=== PATIENT | female | born 1965 | race American Indian/Alaskan Native ===

== ENCOUNTER 2017-09-04 14:49 | Inpatient (IN) | payer MEDICAID ==
[2017-09-04 16:23] LABS: SQUAMOUS EPITHIAL 13 /hpf (0-5); URINE BACTERIA RARE (<OCC); URINE BILIRUBIN NEGATIVE (NEGATIVE); URINE BLOOD NEGATIVE (NEGATIVE); URINE CLARITY Hazy (Clear); URINE COLOR Yellow (YELLOW); URINE GLUCOSE (UA) NORMAL (Normal); URINE LEUKOCYTE ESTERASE NEG Leu/uL (Negative); URINE PROTEIN 1+ mg/dL (NEGATIVE); URINE UROBILINOGEN NORMAL mg/dL (0.2-1.0)
[2017-09-04 16:30] LABS: ALB/GLOB RATIO 0.9 (1.0-2.1); ALBUMIN 3.8 g/dL (3.5-5.0); ALT/SGPT 45 U/L (9-52); AST/SGOT 37 U/L (14-36); BLOOD UREA NITROGEN 44 mg/dL (7-17); CALCIUM 8.8 mg/dl (8.6-10.4); GFR AFRICAN-AMERICAN 15; GFR NON-AFRICAN AMERICAN 13
[2017-09-04 16:33] LABS: BARBITURATES, UR NEGATIVE (NEGATIVE); BENZODIAZEPINES, UR NEGATIVE (NEGATIVE); OPIATES, UR POSITIVE (NEGATIVE); PHENCYCLIDINE, UR NEGATIVE (NEGATIVE)
--- NOTE | 2017-09-04 16:54 | C.PDOC ---
History Of Present Illness 52 y/o female with history of DM, HTN, HIV and Hep C presents to ED requesting detox from Heroin and Cocaine. Patient states she uses 46 bags of heroin and cocaine daily, reports last used last night. Patient denies fever, chills, cp, sob, headache, nausea or any medical complaints at this time. Time Seen by Provider: 09/04/17 15:31 Chief Complaint (Nursing): Substance Abuse History Per: Patient History/Exam Limitations: no limitations Onset/Duration Of Symptoms: Days Current Symptoms Are (Timing): Still Present Suicide/Self Injury Attempted (Context): None Modifying Factor(s): Cocaine Past Medical History Reviewed: Historical Data, Nursing Documentation, Vital Signs Vital Signs: Last Vital Signs Temp 98.0 F 09/04/17 15:34 Pulse 81 09/04/17 15:34 Resp 18 09/04/17 15:34 BP 150/81 09/04/17 15:34 Pulse Ox 100 09/04/17 17:05 - Medical History PMH: Asthma, HIV, HTN Surgical History: No Surg Hx Family History: States: No Known Family Hx - Social History Hx Alcohol Use: Yes Hx Substance Use: Yes - Immunization History Hx Tetanus Toxoid Vaccination: Yes Hx Influenza Vaccination: Yes Hx Pneumococcal Vaccination: Yes Review Of Systems Constitutional: Negative for: Fever, Chills Cardiovascular: Negative for: Chest Pain Respiratory: Negative for: Shortness of Breath Gastrointestinal: Negative for: Nausea, Vomiting Skin: Negative for: Rash Physical Exam - Physical Exam Appears: Non-toxic, No Acute Distress Skin: Warm, Dry, No Rash Head: Atraumatic, Normacephalic Eye(s): bilateral: Normal Inspection Oral Mucosa: Moist Neck: Normal ROM, Supple Cardiovascular: Rhythm Regular Respiratory: Normal Breath Sounds, No Rales, No Rhonchi, No Wheezing Gastrointestinal/Abdominal: Soft, No Tenderness, No Guarding, No Rebound Extremity: Normal ROM, Capillary Refill (<2 seconds) Neurological/Psych: Oriented x3, Normal Speech, Normal Cognition ED Course And Treatment - Laboratory Results Result Diagrams: 09/04/17 16:52 09/04/17 16:14 O2 Sat by Pulse Oximetry: 100 (RA) Pulse Ox Interpretation: Normal Disposition Counseled Patient/Family Regarding: Studies Performed, Diagnosis - Disposition Disposition: HOSPITALIZED Disposition Time: 17:12 Condition: STABLE Forms: [employer] [employer] (Spanish) - Clinical Impression Clinical Impression: Drug dependence - Scribe Statement The provider has reviewed the documentation as recorded by the Thompsonibe Tiffany Haddad All medical record entries made by the Thompsonibe were at my direction and personally dictated by me. I have reviewed the chart and agree that the record accurately reflects my personal performance of the history, physical exam, medical decision making, and the department course for this patient. I have also personally directed, reviewed, and agree with the discharge instructions and disposition. Decision To Admit - Pt Status Changed To: Hospital Disposition Of: Inpatient - Admit Certification Admit to Inpatient:: After my assessment, the patient will require hospitalization for at least two midnights. This is because of the severity of symptoms shown, intensity of services needed, and/or the medical risk in this patient being treated as an outpatient. - InPatient: Physician Admission Certification: I certify that this patient requires 2 or more midnights of care for the following reason:: needs inpatient detox - . Bed Request Type: Detox Patient Diagnosis: Drug dependence
[2017-09-04 17:01] LABS: EOS # 0.1 K/uL (0.0-0.7); EOS % 1.4 % (0.0-4.0); HEMOGLOBIN 9.6 g/dL (11.0-16.0); LYMPH # 0.9 K/uL (1.0-4.3); LYMPH % 23.1 % (20.0-40.0); MEAN CELL VOLUME 99.1 fL (81.0-99.0); MEAN CORPUSCULAR HEMOGLOBIN 33.1 pg (27.0-31.0); MEAN CORPUSCULAR HGB CONC 33.4 g/dL (33.0-37.0); MEAN PLATELET VOLUME 6.5 fL (7.2-11.7); MONO # 0.4 K/uL (0.0-0.8); MONO % 9.9 % (0.0-10.0); NEUT # 2.5 K/uL (1.8-7.0); NEUT % 64.6 % (50.0-75.0); NRBC % 0.1 % (0.0-2.0); RBC 2.89 Mil/uL (3.80-5.20); RED CELL DISTRIBUTION WIDTH 15.3 % (11.5-14.5); WHITE BLOOD COUNT 3.8 K/uL (4.8-10.8)
--- NOTE | 2017-09-04 17:50 | PCM.BM ---
<Edel Perez - Last Filed: 09/04/17 17:48> Treatment Plan Problems - Problems identified on initial assessmt potiential for opiate withdrawal Date Initiated: 09/04/17 Time Initiated: 17:49 Assessment reference: NA Status: Active Treatment assets and liabiliti Patient Assests: ADL independent, good support system, cognitively intact Patient Liabilities: substance abuse, medical problems - Milieu Protocol Maintain good personal hygiene: daily Encourage regular showers, daily Remind patient to perform daily oral care, daily Assist patient to perform ADL's Maintain personal safety: every shift Educate patient to report safety concerns to staff, every shift Monitor environment for contraband/sharps Medication safety: Monitor for expected outcome, potential side effects: every shift, Assess barriers to learning: every shift, Assess readiness for medication education: every shift <Joaquín Lee - Last Filed: 09/06/17 07:56> - Diagnosis (1) Opioid use disorder, severe, dependence Status: Acute Interventions: 09/06/17 07:56 * Assess 7x/week regarding severity of withdrawal * Educate regarding risks, benefits, side effects and alternatives of medications * Use Motivational Interviewing for abstinence * Use CBT for relapse prevention * Medication management for withdrawal symptoms * Encourage medication assisted treatment * (2) Cocaine use disorder, severe, dependence Status: Acute Interventions: 09/06/17 07:56 * Educate regarding risks, benefits, side effects and alternatives of medications * Use Motivational Interviewing for abstinence * Use CBT for relapse prevention * Medication management for withdrawal symptoms * Encourage medication assisted treatment *
[2017-09-04] MEDS ORDERED: Aluminum Hydroxide/Magnesium Hydroxide Susp (30 mL) PO PRN (18:05)
[2017-09-04] MEDS ORDERED: Magnesium Hydroxide Susp 30 ml UD PO PRN (19:24)
[2017-09-05] MEDS ORDERED: Albuterol HFA 90 mcg/actuation (8 g) INH PRN (12:31)
[2017-09-05] MEDS ORDERED: Ergocalciferol 50,000 Intl Units Cap PO SCH (12:45)
--- NOTE | 2017-09-05 12:45 | PCM.PSYCH ---
Initial Psychiatric Evaluation - Initial Psychiatric Evaluation Type of Admission: Voluntary Legal Status: Capacity Chief Complaint (in patient's own words): "I have to stop" History of Present Illness and Precipitating Events: The pt is seen, chart reviewed and case discussed She is a 52 y/o AAF, single with an adult daughter, lives alone, on welfare She is here for 10 bags heroin intranasally x15 years Had 5-6 detoxes and 2 rehabs Used methadone maint. in [place] "long ago." She also smokes crack cocaine x20 years Denies other drugs, but sometimes MJ and 5 cig/d Psych hx: Denies Family psych hx: Denies Medical hx: DM, HTN, HIV, Asthma Current Medications: Active Medications Generic Name Dose Route Start Last Admin Trade Name Freq PRN Reason Stop Dose Admin Al Hydrox/Mg Hydrox/Simethicone 30 ml 09/04/17 18:05 Maalox 30 Ml PO TID PRN Indigestion / Heartburn Albuterol 1 puff 09/05/17 12:31 Ventolin Hfa 90 Mcg/Actuation (8 G) INH RQ4 PRN SOB Amlodipine Besylate 10 mg 09/05/17 12:45 Norvasc PO DAILY [facility] Aspirin 81 mg 09/06/17 10:00 Aspirin Chewable PO DAILY [facility] Atovaquone 750 mg 09/05/17 18:00 Mepron PO BID [facility] Protocol Clonidine HCl 0.1 mg 09/04/17 18:05 Catapres PO Q8 PRN COWS Score More or Equal to 5 Cyanocobalamin 100 mcg 09/05/17 12:45 Vitamin B12 100 Mcg Tab PO DAILY [facility] Darunavir 800 mg 09/05/17 12:45 Prezista PO DAILY [facility] Protocol Docusate Sodium 100 mg 09/05/17 12:45 Colace PO DAILY [facility] Dolutegravir Sodium 50 mg 09/05/17 12:45 Tivicay PO DAILY [facility] Protocol Ergocalciferol 1 cap 09/05/17 12:45 Drisdol 50,000 Intl Units Cap PO Q7D [facility] Glipizide 5 mg 09/06/17 07:30 Glucotrol PO ACB [facility] Hydroxyzine HCl 25 mg 09/04/17 18:06 09/04/17 21:16 Atarax PO 25 mg Q6H PRN Administration Anxiety Ibuprofen 600 mg 09/04/17 18:06 Motrin Tab PO Q6H PRN Pain, moderate (4-7) Loperamide HCl 2 mg 09/04/17 18:05 Imodium PO Q8 PRN Diarrhea Magnesium Hydroxide 30 ml 09/04/17 19:24 09/04/17 19:47 Milk Of Magnesia PO 30 ml BID PRN Administration Constipation Methadone HCl 15 mg 09/05/17 10:00 09/05/17 10:15 Methadone PO 09/09/17 09:59 15 mg Q24H [facility] Administration Taper Multivitamins 1 tab 09/05/17 12:45 Hexavitamin PO DAILY [facility] Ondansetron HCl 4 mg 09/04/17 18:05 Zofran Tab PO Q8 PRN Nausea/Vomiting Quetiapine Fumarate 50 mg 09/04/17 22:45 09/04/17 22:50 Seroquel PO 50 mg HS [facility] Administration Fluticasone/Salmeterol 1 puff 09/05/17 20:00 Advair Diskus 250/50 INH RQ12 [facility] Sodium Chloride 1 gm 09/05/17 12:45 Sodium Chloride Tab PO DAILY [facility] Trazodone HCl 100 mg 09/04/17 22:00 Desyrel PO HS PRN Insomnia Past Psychiatric History - Past Psychiatric History Previous Treatment History: None Pertinent Medical Hx (Current Medical&Sleep Prob, Allergies): Allergies Allergy/AdvReac Type Severity Reaction Status Date / Time sulfamethoxazole Allergy Verified 09/04/17 15:13 [From Bactrim] trimethoprim [From Bactrim] Allergy Verified 09/04/17 15:13 Aspirin EC 09/04/17 Atorvastatin Calcium 10 mg PO 09/04/17 Atovaquone 09/04/17 Cholestyramine [Questran] 09/04/17 Cyanocobalamin (Vitamin B-12) [B-12] 1,000 mcg PO 09/04/17 Docusate Sodium [Stool Softener] 100 mg PO 09/04/17 Dolutegravir Sodium [Tivicay] 09/04/17 Ergocalciferol 5,000 iu PO 09/04/17 Fluticasone/Salmeterol [Advair 250-50 Diskus] 1 each IH 09/04/17 Gabapentin [Neurontin] 100 mg PO 09/04/17 GlipiZIDE [Glucotrol] 5 mg PO 09/04/17 Sodium Bicarbonate 650 mg PO 09/04/17 Sodium Chloride 1 gm PO 09/04/17 Trazodone HCl 100 mg PO 09/04/17 Ventolin Hfa 09/04/17 lamiVUDine [Epivir] 09/04/17 oxyCODONE [oxyCODONE Immediate Release Tab] 30 mg PO 09/04/17 Review of Systems - Neurological Neurological: UNREMARKABLE - Psychiatric Psychiatric: Abnormal Sleep Pattern, Anxiety, Difficulty Concentrating. absent : Homicidal Ideation, Paranoia, Suicidal Ideation Mental Status Examination - Personal Presentation Personal Presentation: Looks older than stated age - Affect Affect: Broad - Motor Activity Motor Activity: Calm - Reliability in Providing Information Reliability in Providing Information: Fair (sarcastic and evasive at times) - Speech Speech: Organized - Mood Mood: Anxious - Formal Thought Process Formal Thought Process: No Impairment - Cognitive Functions Orientation: Person, Place, Situation, Time Sensorium: Alert Attention/Concentration: Attentive, Easily distracted Estimate of Intelligence: Average Judgement: Intact, as evidence by: Insight regarding need for hospitalization Memory: Recent intact, as evidence by: Ability to recall events of the day, Remote intact, as evidenced by: Abilit to recall sig. life events - Risk Risk: Withdrawal, Diminished functioning - Strength & Assets Inventory Strength & Assets Inventory: Cooperative - Limitations Limitations: Living alone, Other (multiple medical illness) DSM 5 DX - DSM 5 DSM 5 Diagnosis: Opioid withdrawal Opioid use d/o - severe Cocaine use d/o -severe - Recommended/Plan of Treatment Treatment Recommendations and Plan of Treatment: Methadone detox As needed medications Gabapentin for augmentation if needed All risks, benefits and alternatives of medications, including no medications, discussed and the patient understood and agreed. Attend groups and activities Supportive therapy and psychoeducation [place] for abstinence CBT for relapse prevention Encourage MAT Refer to rehab or IOP Attend self-help groups as well [place] for smoking cessation and patch if needed Resume medical medications 34 min
[2017-09-05] MEDS: Multiple Vitamins Tab PO SCH (14:26)
[2017-09-05] MEDS: LamiVUDine 10 mg/ml Syringe PO SCH (17:56)
[2017-09-05] MEDS: Atovaquone 750 mg/5 ml Susp UD PO SCH (17:56)
[2017-09-05] MEDS: Fluticasone-Salmeterol 250-50mcg Diskus INH SCH (21:22)
[2017-09-06] MEDS: Fluticasone-Salmeterol 250-50mcg Diskus INH SCH ×2 (07:46→20:56)
[2017-09-06] MEDS: Multiple Vitamins Tab PO SCH (09:59)
[2017-09-06] MEDS: Atovaquone 750 mg/5 ml Susp UD PO SCH ×2 (10:04→17:32)
[2017-09-06] MEDS: LamiVUDine 10 mg/ml Syringe PO SCH (10:04)
[2017-09-06] MEDS ORDERED: Hydrocortisone 1% Cream (30 GM) TOP PRN (15:50)
--- NOTE | 2017-09-06 18:36 | PCM.PYCHPN ---
Psychiatric Progress Note - Psychiatric Progress Note Patient seen today, length of contact: 15 MINUTES Patient Chief Complaint: "I'm getting better" Problems Identified/Issues Discussed: The pt is seen, chart reviewed, case discussed with staff. The pt is compliant with medications and reports no side-effects. Symptoms are improving but needs more time to stabilize. After care discussed, support and psychoeducation given DSM 5 Symptoms Update: Opioid withdrawal Opioid use d/o - severe Cocaine use d/o -severe Medication Change: Yes (methadone taper) Medical Record Reviewed: Yes Mental Status Examination - Cognitive Function Orientation: Person, Place, Situation, Time Memory: Intact Attention: WNL Concentration: WNL Association: WNL Fund of Knowledge: [facility] Decription of patient's judgement and insights: fair/fair - Mood Mood: Anxious - Affect Affect: Broad - Speech Speech: Appropriate - Formal Thought Process Formal Thought Process: No Impairment Psychotic Thoughts and Behaviors: denied - Suicidal Ideation Suicidal Ideation: No Plan: denied - Homicidal Ideation Homicidal Ideation: No Plan: denied Goal/Treatment Plan - Goal/Treatment Plan Need for Continued Stay: Discharge may exacerbated symptoms Progress Toward Problem(s) and Goals/Treatment Plan: Continue current treatment Psychoeducation Therapy in milieu Supportive therapy Estimated Date of D/C: 09/08/17
[2017-09-07] MEDS: Fluticasone-Salmeterol 250-50mcg Diskus INH SCH ×2 (07:45→21:04)
[2017-09-07] MEDS: Multiple Vitamins Tab PO SCH (09:38)
[2017-09-07] MEDS: LamiVUDine 10 mg/ml Syringe PO SCH (09:39)
[2017-09-07] MEDS: Atovaquone 750 mg/5 ml Susp UD PO SCH ×2 (09:39→17:51)
--- NOTE | 2017-09-07 13:13 | RAD ---
HISTORY: Discharge instructions COMPARISON: No prior. TECHNIQUE: Chest PA and lateral FINDINGS: LUNGS: No active pulmonary disease. PLEURA: No significant pleural effusion identified. No pneumothorax apparent. CARDIOVASCULAR: Normal. OSSEOUS STRUCTURES: No significant abnormalities. VISUALIZED UPPER ABDOMEN: Normal. OTHER FINDINGS: None. IMPRESSION: No active disease.
--- NOTE | 2017-09-07 15:26 | PCM.PYCHPN ---
Psychiatric Progress Note - Psychiatric Progress Note Patient seen today, length of contact: 15 MINUTES Patient Chief Complaint: "I'm getting better slowly" Problems Identified/Issues Discussed: The pt is seen, chart reviewed, case discussed with staff. The pt is compliant with medications and reports no side-effects. Pt stated that she still had opioid withdrawal symptoms and need extra dosage. Symptoms are improving but needs more time to stabilize. After care discussed, support and psychoeducation given DSM 5 Symptoms Update: Opioid use disorder, severe, dependence Opioid withdrawal Medication Change: Yes (methadone taper) Medical Record Reviewed: Yes Mental Status Examination - Cognitive Function Orientation: Person, Place, Situation, Time Memory: Intact Attention: WNL Concentration: WNL Association: WNL Fund of Knowledge: [facility] Decription of patient's judgement and insights: fair/fair Addtional comments: Cooperative - Mood Mood: Anxious - Affect Affect: Broad - Speech Speech: Appropriate - Formal Thought Process Formal Thought Process: No Impairment Psychotic Thoughts and Behaviors: denied - Suicidal Ideation Suicidal Ideation: No Plan: denied - Homicidal Ideation Homicidal Ideation: No Plan: denied Goal/Treatment Plan - Goal/Treatment Plan Need for Continued Stay: Discharge may exacerbated symptoms Progress Toward Problem(s) and Goals/Treatment Plan: Continue current treatment Psychoeducation Therapy in milieu Supportive therapy Estimated Date of D/C: 09/08/17 - Smoking Cessation Smoking Cessation Initiated: Yes
[2017-09-07] MEDS ORDERED: Vitamins A & D Oint UD Foilpak TOP SCH (18:15)
[2017-09-07] MEDS ORDERED: Vitamins A & D Oint UD Foilpak TOP PRN (18:18)
[2017-09-08] MEDS: Fluticasone-Salmeterol 250-50mcg Diskus INH SCH ×2 (08:09→22:26)
[2017-09-08] MEDS: LamiVUDine 10 mg/ml Syringe PO SCH (09:56)
[2017-09-08] MEDS: Atovaquone 750 mg/5 ml Susp UD PO SCH ×2 (09:56→18:21)
[2017-09-08] MEDS: Multiple Vitamins Tab PO SCH (09:57)
--- NOTE | 2017-09-08 13:54 | PCM.PYCHPN ---
Psychiatric Progress Note - Psychiatric Progress Note Patient seen today, length of contact: 16 min Patient Chief Complaint: "I am anxious" Problems Identified/Issues Discussed: The pt is seen, chart reviewed, case discussed with staff. The pt is compliant with medications and reports no side-effects. Symptoms are improving but needs more time to stabilize. After care discussed, support and psychoeducation given. She is very worried about switching her insurance to [place] and that her pharmacy and drs are all in [place] Medication Change: Yes (methadone taper) Medical Record Reviewed: Yes Mental Status Examination - Cognitive Function Orientation: Person, Place, Situation, Time Memory: Intact Attention: WNL Concentration: WNL Association: WNL Fund of Knowledge: WNL - Mood Mood: Anxious - Affect Affect: Broad - Speech Speech: Appropriate - Formal Thought Process Formal Thought Process: No Impairment - Suicidal Ideation Suicidal Ideation: No - Homicidal Ideation Homicidal Ideation: No Goal/Treatment Plan - Goal/Treatment Plan Need for Continued Stay: Discharge may exacerbated symptoms, Severe functional impairment Progress Toward Problem(s) and Goals/Treatment Plan: Methadone detox As needed medications Gabapentin for augmentation if needed All risks, benefits and alternatives of medications, including no medications, discussed and the patient understood and agreed. Attend groups and activities Supportive therapy and psychoeducation [place] for abstinence CBT for relapse prevention Encourage MAT Refer to rehab or IOP Attend self-help groups as well [place] for smoking cessation and patch if needed Resumed medical medications Estimated Date of D/C: 09/08/17
[2017-09-09] MEDS: Fluticasone-Salmeterol 250-50mcg Diskus INH SCH (08:03)
[2017-09-09 08:46] VITALS: BP 122/75; PULSE 65; RESP 20; TEMP 98.2; O2SAT 100
--- NOTE | 2017-09-09 09:01 | PCM.PYCHDC ---
Mental Status Examination - Mental Status Examination Orientation: Person Discharge Summary - Discharge Note Laboratory Data: Abnormal Lab Results 09/06/17 07:25 POC Glucose (mg/dL) 137 H Consultations:: List each consultation separately and include: 1. Reason for request. 2. Findings. 3. Follow-up Summary of Hospital Course include:: 1. Description of specific treatment plan utilized for patients during their course of treatmen. 2. Summarize the time- course for resolution of acute symptoms and/or regressed behaviors. 3. Describe issues identified and worked on during hospitalization. 4. Describe medication utilized. 5. Describe medical problems identified and treated. 6. Reassessment of suicide risk Summary of Hospital Course: The pt is seen, chart reviewed and case discussed She is a 52 y/o AAF, single with an adult daughter, lives alone, on welfare She is here for 10 bags heroin intranasally x15 years Had 5-6 detoxes and 2 rehabs Used methadone maint. in [place] "long ago." She also smokes crack cocaine x20 years Denies other drugs, but sometimes MJ and 5 cig/d Psych hx: Denies Family psych hx: Denies Medical hx: DM, HTN, HIV, Asthma - Diagnosis (1) Opioid use disorder, severe, dependence Current Visit: Yes Status: Acute (2) Cocaine use disorder, severe, dependence Current Visit: Yes Status: Acute - Final Diagnosis (DSM 5) Condition upon Discharge: STABLE Disposition: HOME/ ROUTINE Follow-up Treatment Plan: Methadone detox As needed medications Gabapentin for augmentation if needed All risks, benefits and alternatives of medications, including no medications, discussed and the patient understood and agreed. Attend groups and activities Supportive therapy and psychoeducation [place] for abstinence CBT for relapse prevention Encourage MAT Refer to rehab or IOP Attend self-help groups as well [place] for smoking cessation and patch if needed Resumed medical medications Prescriptions/Medication Reconciliation: Ergocalciferol [Drisdol 50,000 Intl Units Cap] 1 cap PO Q7D #4 cap hydrOXYzine HCl [Atarax] 25 mg PO BID PRN #60 tab PRN Reason: Anxiety QUEtiapine [SEROquel] 50 mg PO HS #30 tab
[2017-09-09] MEDS: LamiVUDine 10 mg/ml Syringe PO SCH (09:32)
[2017-09-09] MEDS: Atovaquone 750 mg/5 ml Susp UD PO SCH (09:33)
[2017-09-09] MEDS: Multiple Vitamins Tab PO SCH (09:34)
== END 2017-09-09 11:00 | disposition home or self-care (01) | DRG 715 ==
LOC: C.ER 14:49 → C.7D 17:13
PROVIDERS: ADMIT Psychiatry & Neurology Psychiatry; ATTEND Psychiatry & Neurology Psychiatry
PROC: HZ2ZZZZ Detoxification Services for Substance Abuse Treatment (ICD-10-PCS; principal; 2017-09-04)
DX: F11.23 Opioid dependence with withdrawal (principal); Z21 Asymptomatic human immunodeficiency virus [HIV] infection status; F14.20 Cocaine dependence, uncomplicated; I10 Essential (primary) hypertension; J45.909 Unspecified asthma, uncomplicated; E11.9 Type 2 diabetes mellitus without complications; Z79.4 Long term (current) use of insulin

== ENCOUNTER 2017-11-07 16:09 | Inpatient (IN) | payer MEDICAID ==
[2017-11-07 17:18] LABS: BASO % 1.4 % (0.0-2.0); EOS # 0.1 K/uL (0.0-0.7); EOS % 3.6 % (0.0-4.0); LYMPH # 1.1 K/uL (1.0-4.3); LYMPH % 33.2 % (20.0-40.0); MEAN CELL VOLUME 97.7 fL (81.0-99.0); MEAN CORPUSCULAR HEMOGLOBIN 31.7 pg (27.0-31.0); MEAN CORPUSCULAR HGB CONC 32.4 g/dL (33.0-37.0); MEAN PLATELET VOLUME 7.3 fL (7.2-11.7); MONO # 0.5 K/uL (0.0-0.8); MONO % 13.4 % (0.0-10.0); NEUT # 1.6 K/uL (1.8-7.0); NEUT % 48.4 % (50.0-75.0); NRBC % 0.2 % (0.0-2.0); RED CELL DISTRIBUTION WIDTH 15.5 % (11.5-14.5); WHITE BLOOD COUNT 3.4 K/uL (4.8-10.8)
[2017-11-07 17:20] LABS: HEMOGLOBIN 12.7 g/dL (11.0-16.0)
--- NOTE | 2017-11-07 17:26 | C.PDOC ---
History Of Present Illness 52-year-old female, presents to the emergency department pre-screened for detox from Heroin. Patient states last use was at 09:00 this morning, and uses 5-6 bags a day. Denies HI/SI. Patient is HD with exchange m/w/f with last exchange today. Time Seen by Provider: 11/07/17 16:41 Chief Complaint (Nursing): Substance Abuse History Per: Patient History/Exam Limitations: no limitations Current Symptoms Are (Timing): Still Present Severity: Moderate Past Medical History Reviewed: Historical Data, Nursing Documentation, Vital Signs Vital Signs: Last Vital Signs Temp 98.1 F 11/07/17 16:24 Pulse 85 11/07/17 16:24 Resp 18 11/07/17 16:24 BP 154/89 H 11/07/17 16:24 Pulse Ox 99 11/07/17 18:03 - Medical History PMH: Asthma, Diabetes, HIV, HTN Denies: Hepatitis, Seizures, Sexually Transmitted Disease - [facility] DETOXIFICATION SERVICES FOR SUBSTANCE ABUSE TREATMENT (09/04/17) Family History: States: No Known Family Hx - Social History Hx Alcohol Use: No Hx Substance Use: Yes - Immunization History Hx Tetanus Toxoid Vaccination: Yes Hx Influenza Vaccination: Yes Hx Pneumococcal Vaccination: Yes Review Of Systems Constitutional: Negative for: Fever Cardiovascular: Negative for: Chest Pain Respiratory: Negative for: Shortness of Breath Gastrointestinal: Negative for: Vomiting, Abdominal Pain Psych: Negative for: Psychosis, Suicidal ideation, Withdrawal Physical Exam - Physical Exam Appears: Non-toxic, No Acute Distress Skin: Warm, Dry, No Rash Head: Atraumatic Eye(s): bilateral: Normal Inspection Nose: Normal Tongue: Normal Appearing Lips: Normal Appearing Neck: Normal ROM Cardiovascular: Rhythm Regular, No Murmur Respiratory: Normal Breath Sounds, No Accessory Muscle Use Gastrointestinal/Abdominal: Soft, No Tenderness Extremity: Normal ROM, No Deformity, No Swelling Neurological/Psych: Oriented x3, Normal Speech ED Course And Treatment - Laboratory Results Result Diagrams: 11/07/17 17:08 11/07/17 17:08 O2 Sat by Pulse Oximetry: 99 (RA) Pulse Ox Interpretation: Normal Disposition Discussed With : Joaquín Lee Doctor Will See Patient In The: Hospital Counseled Patient/Family Regarding: Studies Performed, Diagnosis - Disposition Disposition Time: 18:03 Condition: FAIR Forms: [facility] (Belarusian) - Clinical Impression Clinical Impression: Drug dependence - Scribe Statement The provider has reviewed the documentation as recorded by the Scribe (Johnna Luevano) Provider Attestation: All medical record entries made by the Scribe were at my direction and personally dictated by me. I have reviewed the chart and agree that the record accurately reflects my personal performance of the history, physical exam, medical decision making, and the department course for this patient. I have also personally directed, reviewed, and agree with the discharge instructions and disposition.
[2017-11-07 17:38] LABS: SQUAMOUS EPITHIAL 3 /hpf (0-5); URINE BACTERIA RARE (<OCC); URINE BILIRUBIN NEGATIVE (NEGATIVE); URINE BLOOD NEGATIVE (NEGATIVE); URINE CLARITY Hazy (Clear); URINE COLOR Amber (YELLOW); URINE GLUCOSE (UA) NORMAL (Normal); URINE LEUKOCYTE ESTERASE NEG Leu/uL (Negative); URINE PROTEIN 1+ mg/dL (NEGATIVE)
[2017-11-07 17:40] LABS: BARBITURATES, UR NEGATIVE (NEGATIVE); BENZODIAZEPINES, UR NEGATIVE (NEGATIVE); PHENCYCLIDINE, UR NEGATIVE (NEGATIVE)
[2017-11-07 17:42] LABS: ALBUMIN 4.3 g/dL (3.5-5.0); ALT/SGPT 52 U/L (9-52); AST/SGOT 60 U/L (14-36); BLOOD UREA NITROGEN 20 mg/dL (7-17); CALCIUM 9.1 mg/dl (8.6-10.4); GFR AFRICAN-AMERICAN 28; GFR NON-AFRICAN AMERICAN 23
[2017-11-07 17:53] LABS: OPIATES, UR POSITIVE (NEGATIVE)
[2017-11-07] MEDS ORDERED: Aluminum Hydroxide/Magnesium Hydroxide Susp (30 mL) PO PRN (20:37)
[2017-11-07] MEDS ORDERED: Vitamins A & D Oint UD Foilpak TOP ONE (21:30)
--- NOTE | 2017-11-07 22:52 | PCM.BM ---
<FredoRebecca - Last Filed: 11/07/17 22:52> Treatment Plan Problems - Problems identified on initial assessmt Potential for opiate withdrawal Date Initiated: 11/07/17 Time Initiated: 22:52 Assessment reference: NA Status: Active Treatment assets and liabiliti Patient Assests: ADL independent, good support system, negotiates basic needs, cognitively intact Patient Liabilities: substance abuse, medical problems - Milieu Protocol Maintain good personal hygiene: daily Encourage regular showers, daily Remind patient to perform daily oral care, daily Assist patient to perform ADL's Conduct patient checks and document Observation sheet: Q15 minutes Maintain personal safety: every shift Educate patient to report safety concerns to staff, every shift Monitor environment for contraband/sharps Medication safety: Monitor for expected outcome, potential side effects: every shift, Assess barriers to learning: every shift, Assess readiness for medication education: every shift <Joaquín Lee - Last Filed: 11/08/17 14:25> - Diagnosis (1) Opioid use disorder, severe, dependence Status: Acute Interventions: 11/08/17 14:25 * Assess 7x/week regarding severity of withdrawal * Educate regarding risks, benefits, side effects and alternatives of medications * Use Motivational Interviewing for abstinence * Use CBT for relapse prevention * Medication management for withdrawal symptoms * Encourage medication assisted treatment *
[2017-11-08] MEDS: Multiple Vitamins Tab PO SCH (09:39)
--- NOTE | 2017-11-08 11:15 | PCM.PSYCH ---
Initial Psychiatric Evaluation - Initial Psychiatric Evaluation Type of Admission: Voluntary Legal Status: Capacity Chief Complaint (in patient's own words): "I relapsed" History of Present Illness and Precipitating Events: The pt is seen, chart reviewed and case discussed She is a 52 y/o AAF, single with an adult daughter, lives alone, on welfare She is known from previous admission. She says she relapsed 2-3 weeks ago She is here again for 10 bags heroin intranasally She started 15 years ago Had 5-6 detoxes and 2 rehabs Used methadone maintenance in [place] "long ago." She also smoked crack cocaine x20 years. Negative now Denies other drugs, but sometimes MJ and 5 cig/d Psych hx: Denies, but now feels depressed, not suicidal though Family psych hx: Denies Medical hx: DM, HTN, HIV, Asthma. She is NOW ON HEMODIALYSIS Current Medications: Active Medications Generic Name Dose Route Start Last Admin Trade Name Freq PRN Reason Stop Dose Admin Acetaminophen 650 mg 11/07/17 20:37 Tylenol 325mg Tab PO Q6H PRN Pain, moderate (4-7) Al Hydrox/Mg Hydrox/Simethicone 30 ml 11/07/17 20:37 Maalox 30 Ml PO TID PRN Indigestion / Heartburn Clonidine HCl 0.1 mg 11/07/17 20:37 11/08/17 09:39 Catapres PO 0.1 mg Q8 PRN Administration COWS Score More or Equal to 5 Hydroxyzine HCl 25 mg 11/07/17 21:08 11/07/17 21:36 Atarax PO 25 mg Q4 PRN Administration Anxiety Loperamide HCl 2 mg 11/07/17 20:37 Imodium PO Q8 PRN Diarrhea Methadone HCl 15 mg 11/08/17 10:00 11/08/17 09:39 Methadone PO 11/12/17 09:59 15 mg Q24H NEGRA Administration Taper Multivitamins 1 tab 11/08/17 10:00 11/08/17 09:39 Hexavitamin PO 1 tab DAILY NEGRA Administration Ondansetron HCl 4 mg 11/07/17 20:37 Zofran Tab PO Q8 PRN Nausea/Vomiting Quetiapine Fumarate 50 mg 11/07/17 22:00 11/07/17 21:36 Seroquel PO 50 mg HS NEGRA Administration Past Psychiatric History - Past Psychiatric History Previous Treatment History: None Pertinent Medical Hx (Current Medical&Sleep Prob, Allergies): Allergies Allergy/AdvReac Type Severity Reaction Status Date / Time sulfamethoxazole Allergy Verified 09/04/17 15:13 [From Bactrim] trimethoprim [From Bactrim] Allergy Verified 09/04/17 15:13 Atorvastatin Calcium 10 mg PO DAILY 09/04/17 Cyanocobalamin (Vitamin B-12) [B-12] 1,000 mcg PO DAILY 09/04/17 Gabapentin [Neurontin] 100 mg PO BID 09/04/17 oxyCODONE [oxyCODONE Immediate Release Tab] 30 mg PO DAILY 09/04/17 Darunavir [Prezista] 800 mg PO DAILY tab 09/09/17 Dolutegravir Sodium [Tivicay] 50 mg PO DAILY tab 09/09/17 Ergocalciferol [Drisdol 50,000 Intl Units Cap] 1 cap PO Q7D #4 cap 09/09/17 GlipiZIDE [Glucotrol] 5 mg PO ACB tab 09/09/17 Hydrocortisone 1% Cream [Cortizone 1% Cream] 1 gm TOP BID PRN tube 09/09/17 QUEtiapine [SEROquel] 50 mg PO HS #30 tab 09/09/17 hydrOXYzine HCl [Atarax] 25 mg PO BID PRN #60 tab 09/09/17 lamiVUDine [Epivir] 100 mg PO DAILY syr 09/09/17 Review of Systems - Psychiatric Psychiatric: Abnormal Sleep Pattern, Anhedonia, Anxiety, Change in Appetite, Depression, Difficulty Concentrating, Irritability. absent: Hallucinations, Homicidal Ideation, Suicidal Ideation Mental Status Examination - Personal Presentation Personal Presentation: Looks older than stated age - Affect Affect: Constricted - Motor Activity Motor Activity: Calm - Reliability in Providing Information Reliability in Providing Information: Good - Speech Speech: Organized - Mood Mood: Depressed, Anxious - Formal Thought Process Formal Thought Process: No Impairment - Cognitive Functions Orientation: Person, Place, Situation, Time Sensorium: Alert Attention/Concentration: Attentive Estimate of Intelligence: Average Judgement: Intact, as evidence by: Insight regarding need for hospitalization Memory: Recent intact, as evidence by: Ability to recall events of the day, Remote intact, as evidenced by: Abilit to recall sig. life events - Risk Risk: Withdrawal, Diminished functioning - Strength & Assets Inventory Strength & Assets Inventory: Cooperative - Limitations Limitations: Other DSM 5 DX - DSM 5 DSM 5 Diagnosis: Opioid withdrawal Opioid use d/o- severe HIV ESRD? HTN DM Asthma - Recommended/Plan of Treatment Treatment Recommendations and Plan of Treatment: Taper with methadone As needed medications All risks, benefits and alternatives of the meds discussed, and the pt agreed and understood. Attend groups and activities Supportive therapy and psychoeducation [place] for abstinence CBT for relapse prevention Encourage MAT Refer to rehab or IOP, and self-help groups Smoking cessation with [place] Nicotine patch if needed Nephro consult - she will need HD on Friday and Friday 34 min Projected ELOS: 4-5 days Prognosis: good w treatment - Smoking Cessation Smoking Cessation Initiated: Yes
[2017-11-08] MEDS ORDERED: Ergocalciferol 50,000 Intl Units Cap PO SCH (11:30)
[2017-11-08] MEDS: LamiVUDine 10 mg/ml Syringe PO SCH (12:09)
[2017-11-08] MEDS ORDERED: Vitamins A & D Oint UD Foilpak TOP PRN (12:18)
[2017-11-08] MEDS ORDERED: Albuterol HFA 90 mcg/actuation (8 g) INH PRN (12:32)
--- NOTE | 2017-11-08 15:52 | CP.PCM.CON ---
History of Present Illness - History of Present Illness History of Present Illness: pt is seen and examined, full consult is dictated #[id number] 1. ESRD 2. HTN 3. DM 4. HIV+ve 5. Heroin abuse c/w detox for hd on friday check po4 level, monitor sugars Past Patient History - Past Medical History & Family History Past Medical History?: Yes - Past Social History Smoking Status: Light Smoker < 10 Cigarettes Daily - CARDIAC Hx Hypertension: Yes - PULMONARY Hx Asthma: Yes - NEUROLOGICAL Hx Seizures: No - ENDOCRINE/METABOLIC Hx Diabetes Mellitus Type 2: Yes - HEMATOLOGICAL/ONCOLOGICAL Hx Human Immunodeficiency Virus (HIV): Yes - MUSCULOSKELETAL/RHEUMATOLOGICAL Hx Falls: No - GASTROINTESTINAL Hx Colostomy: Yes - GENITOURINARY/GYNECOLOGICAL Hx Sexually Transmitted Disorders: No - PSYCHIATRIC Hx Substance Use: Yes - SURGICAL HISTORY Hx Surgeries: Yes Hx Hysterectomy: Yes - ANESTHESIA Hx Anesthesia: Yes Hx Anesthesia Reactions: No Hx Malignant Hyperthermia: No Meds Allergies/Adverse Reactions: Allergies Allergy/AdvReac Type Severity Reaction Status Date / Time sulfamethoxazole Allergy Verified 09/04/17 15:13 [From Bactrim] trimethoprim [From Bactrim] Allergy Verified 09/04/17 15:13 - Medications Medications: Current Medications Acetaminophen (Tylenol 325mg Tab) 650 mg PO Q6H PRN PRN Reason: Pain, moderate (4-7) Al Hydrox/Mg Hydrox/Simethicone (Maalox 30 Ml) 30 ml PO TID PRN PRN Reason: Indigestion / Heartburn Albuterol (Ventolin Hfa 90 Mcg/Actuation (8 G)) 1 puff INH RQ4 PRN PRN Reason: SOB Clonidine HCl (Catapres) 0.1 mg PO Q4H PRN PRN Reason: COWS Score More or Equal to 5 Cyanocobalamin (Vitamin B12 1000 Mcg Tab) 1,000 mcg PO DAILY NEGRA Last Admin: 11/08/17 13:41 Dose: 1,000 mcg Darunavir (Prezista) 800 mg PO DAILY NEGRA PRN Reason: Protocol Last Admin: 11/08/17 12:09 Dose: 800 mg Dolutegravir Sodium (Tivicay) 50 mg PO DAILY NEGRA PRN Reason: Protocol Last Admin: 11/08/17 12:09 Dose: 50 mg Ergocalciferol (Drisdol 50,000 Intl Units Cap) 1 cap PO Q7D NEGRA Last Admin: 11/08/17 12:13 Dose: 1 cap Glipizide (Glucotrol) 5 mg PO ACB NEGRA Last Admin: 11/08/17 12:10 Dose: Not Given Hydroxyzine HCl (Atarax) 25 mg PO Q4 PRN PRN Reason: Anxiety Last Admin: 11/08/17 13:42 Dose: 25 mg Lamivudine (Epivir) 100 mg PO DAILY NEGRA PRN Reason: Protocol Last Admin: 11/08/17 12:09 Dose: 100 mg Loperamide HCl (Imodium) 2 mg PO Q8 PRN PRN Reason: Diarrhea Methadone HCl (Methadone) 15 mg PO Q24H NEGRA PRN Reason: Taper Stop: 11/12/17 09:59 Last Admin: 11/08/17 09:39 Dose: 15 mg Multivitamins (Hexavitamin) 1 tab PO DAILY [facility] Last Admin: 11/08/17 09:39 Dose: 1 tab Ondansetron HCl (Zofran Tab) 4 mg PO Q8 PRN PRN Reason: Nausea/Vomiting Quetiapine Fumarate (Seroquel) 50 mg PO HS [facility] Last Admin: 11/07/17 21:36 Dose: 50 mg Vitamin A (Vitamin A & D Oint Ud Foilpak) 1 ea TOP BID PRN PRN Reason: Dry skin Last Admin: 11/08/17 12:24 Dose: 1 ea Results - Vital Signs Recent Vital Signs: Last Vital Signs Temp 98.4 F 11/08/17 13:15 Pulse 70 11/08/17 13:15 Resp 18 11/08/17 13:15 BP 121/76 11/08/17 13:15 Pulse Ox 98 11/08/17 13:15 - Labs Result Diagrams: 11/07/17 17:08 11/07/17 17:08 Labs: Laboratory Results - last 24 hr 11/07/17 11/07/17 11/07/17 17:08 17:08 17:18 WBC 3.4 L RBC 4.00 Hgb 12.7 D Hct 39.1 MCV 97.7 MCH 31.7 H MCHC 32.4 L RDW 15.5 H Plt Count 234 D MPV 7.3 Neut % (Auto) 48.4 L Lymph % (Auto) 33.2 Kendall % (Auto) 13.4 H Eos % (Auto) 3.6 Baso % (Auto) 1.4 Neut # (Auto) 1.6 L Lymph # (Auto) 1.1 Kendall # (Auto) 0.5 Eos # (Auto) 0.1 Baso # (Auto) 0.0 Sodium 137 Potassium 3.7 Chloride 96 L Carbon Dioxide 32 H Anion Gap 13 BUN 20 H Creatinine 2.2 H Est GFR ( Amer) 28 Est GFR (Non-Af Amer) 23 Random Glucose 53 L Calcium 9.1 Total Bilirubin 0.4 AST 60 H D ALT 52 Alkaline Phosphatase 118 Total Protein 8.6 H Albumin 4.3 Globulin 4.4 H Albumin/Globulin Ratio 1.0 Urine Color Zully Urine Clarity Hazy Urine pH 5.0 Ur Specific [place] 1.021 Urine Protein 1+ H Urine Glucose (UA) Normal Urine Ketones Negative Urine Blood Negative Urine Nitrate Negative Urine Bilirubin Negative Urine Urobilinogen 2.0 H Ur Leukocyte Esterase Neg Urine WBC (Auto) 1 Urine RBC (Auto) 1 Ur Squamous Epith Cells 3 Ur Transition Epith Cell < 1 Urine Bacteria Rare Hyaline Casts 3-5 H Urine Opiates Screen Urine Methadone Screen Ur Barbiturates Screen Ur Phencyclidine Scrn Ur Amphetamines Screen U Benzodiazepines Scrn U Oth Cocaine Metabols U Cannabinoids Screen Alcohol, Quantitative < 10 11/07/17 17:18 WBC RBC Hgb Hct MCV MCH MCHC RDW Plt Count MPV Neut % (Auto) Lymph % (Auto) Kendall % (Auto) Eos % (Auto) Baso % (Auto) Neut # (Auto) Lymph # (Auto) Kendall # (Auto) Eos # (Auto) Baso # (Auto) Sodium Potassium Chloride Carbon Dioxide Anion Gap BUN Creatinine Est GFR ( Amer) Est GFR (Non-Af Amer) Random Glucose Calcium Total Bilirubin AST ALT Alkaline Phosphatase Total Protein Albumin Globulin Albumin/Globulin Ratio Urine Color Urine Clarity Urine pH Ur Specific [place] Urine Protein Urine Glucose (UA) Urine Ketones Urine Blood Urine Nitrate Urine Bilirubin Urine Urobilinogen Ur Leukocyte Esterase Urine WBC (Auto) Urine RBC (Auto) Ur Squamous Epith Cells Ur Transition Epith Cell Urine Bacteria Hyaline Casts Urine Opiates Screen Positive H Urine Methadone Screen Negative Ur Barbiturates Screen Negative Ur Phencyclidine Scrn Negative Ur Amphetamines Screen Negative U Benzodiazepines Scrn Negative U Oth Cocaine Metabols Negative U Cannabinoids Screen Negative Alcohol, Quantitative
--- NOTE | 2017-11-09 07:36 | CON ---
DATE: 11/09/2017 LOCATION: The patient is located in 00:20 room 757, bed B. REQUESTED BY: Joaquín Lee MD. REASON For RENAL CONSULTATION: End-stage renal disease and for continuation of hemodialysis, Mrs. Shine is about 52-year-old middle-aged female with a past medical history significant for hypertension since 2006, diabetes since 2006, HIV positive, history of colon surgery with questionable small bowel obstruction, status post colostomy in February 2017, and a history of end-stage renal disease on hemodialysis for the last 6 weeks. The patient is receiving dialysis in inbound dialysis unit in [place]. The patient was admitted for drug detox, The patient is not in acute distress. Denies any chest pain or palpitation. Denies any fever or cough. No abdominal pain. No nausea, vomiting, diarrhea. Last hemodialysis on Friday in the dialysis center outpatient, the patient is not in acute distress. PAST MEDICAL HISTORY: Significant for diabetes since 2006, hypertension 2006, and also end-stage renal disease on hemodialysis for the last 6 weeks. PAST SURGICAL HISTORY: Status post fibroid surgery and hysterectomy and status post questionable bowel surgery and colostomy in February 2017. ALLERGIES: ALLERGIC TO SULFAMETHOXAZOLE AND TRIMETHOPRIM, AND ALSO THE PATIENT IS HIV POSITIVE. SOCIAL HISTORY: The patient is a smoker, smokes one-pack per day for more than 20 years. Denies alcohol abuse. The patient also has heroin abuse. The patient claims that she is sniffing heroin. PERSONAL HISTORY: She is single. She has a 1 child, 31 years old. FAMILY HISTORY: Not significant. CURRENT MEDICATIONS: Include as follows: Hydralazine 25 mg p.o. every 8 hours p.r.n., clonidine 0.1 mg p.o. every 4 hours p.r.n., and vitamin D, ergocalciferol 50,000 units one capsule every 7 days, Epivir 100 mg p.o. daily, Glucotrol 5 mg p.o. ACB, and multivitamin 1 tablet daily, Imodium 2 mg p.o. every 8 hours p.r.n., Maalox, methadone 15 mg p.o. every 24 hours, Prezista 800 mg p.o. daily, Seroquel 50 mg p.o. at bedtime, Tivicay 50 mg p.o. daily,Tylenol, albuterol inhaler, vitamin E and D ointment topical, vitamin B12 1000 mcg p.o. daily, and Zofran 4 mg p.o. every 8 hours. REVIEW OF SYSTEMS: Significant for a detox and heroin abuse and smoking. All other review of systems are reviewed and are negative except as mentioned. PHYSICAL EXAMINATION: GENERAL: Mrs. Shine is a 52-year-old middle-aged female, moderately built, moderately nourished, not in distress. VITAL SIGNS: As follows: Blood pressure 126/86, pulse 64, respirations 18, temperature 97.5, saturation 100%. Height 5 feet 6 inches, weight is 137 pounds. HEENT: Pupils normal, reactive to light and accommodation. Conjunctivae pink. Sclerae anicteric. Tongue is moist and trachea is midline. LUNGS: Symmetric on both sides. Bilateral breath sounds present. Clear to auscultation. CVS: [place] at the fifth intercostal space of intermediate midclavicular area. S1 and S2 audible. No murmur or gallop. ABDOMEN: Normal in appearance. The patient has a colostomy. Abdomen is soft. No guarding. No rigidity. No hepatosplenomegaly. BOX NAILER: The patient is alert, awake, And oriented x3. NEUROLOGICAL: Nonfocal neuro examination. Cranial nerves II through XII grossly intact. Sensory and motor system is within normal limits. EXTREMITIES: No cyanosis. No clubbing. No edema. LABORATORY DATA: Include as follows: As of 11/07/2017, WBC 3.4, hemoglobin 12.7, hematocrit is 39.1, platelets 234. Sodium 137, potassium 3.7, chloride 96, CO2 of 32, BUN 20, creatinine 2.2, glucose is 53, calcium 9.1. Total bili 0.4, AST 60, ALT 52, alkaline phosphatase 11, a total protein 8.6, albumin is 4.3. Urinalysis: Zully, hazy, pH is 5, specific gravity 1.021 and protein of 1+, glucose is normal, ketones negative, blood negative, nitrite negative, bilirubin negative, urobilinogen 2.0, leukocyte esterase negative, wbc 1, rbc 1, bacteria rare. Urine toxic screen positive for opiates. IMPRESSION AND PLAN: In summary, Mrs. Shine is a 52-year-old middle-aged female with a history of hypertension, diabetes since 2006, HIV positive, end-stage renal disease on hemodialysis for the last 6 weeks and status post left upper extremity AV graft placement about 6 weeks ago and heroin abuse was admitted to detox. 1. End-stage renal disease. Continue hemodialysis 3 times every Friday, Friday, and Friday. 2. Hypertension. Blood pressure is stable. Continue her antihypertensive medication, hydralazine, clonidine. 3. Diabetes. Continue glipizide. Continue to monitor Accu-Cheks. 4. Human immunodeficiency virus. Continue antiretroviral medication Epivir, Prezista, and Tivicay. Continue methadone 15 mg p.o. every 24 hours for detox. We will schedule for hemodialysis on Friday. Continue monitor and Accu-Cheks. Check phosphorus level and we will consider to add phosphate binders once phosphorus level is available. Thank you for allowing me to participate in your patient's care Alvaro Duarte MD
[2017-11-09] MEDS: LamiVUDine 10 mg/ml Syringe PO SCH (09:30)
[2017-11-09] MEDS: Multiple Vitamins Tab PO SCH (09:30)
--- NOTE | 2017-11-10 00:21 | PCM.PYCHPN ---
Psychiatric Progress Note - Psychiatric Progress Note Patient seen today, length of contact: 16 min Patient Chief Complaint: "I am not well" Problems Identified/Issues Discussed: The pt is seen, chart reviewed, case discussed with staff. The pt is compliant with medications and reports no side-effects. Symptoms are improving but needs more time to stabilize. Pt attends groups and activities. Support given, psycho-education provided. After care discussed. Medication Change: Yes (detox changes daily) Medical Record Reviewed: Yes Mental Status Examination - Cognitive Function Orientation: Person, Place, Situation, Time Memory: Impaired Attention: WNL Concentration: Poor Association: WNL Fund of Knowledge: Poor - Mood Mood: Depressed, Anxious - Affect Affect: Constricted - Speech Speech: Appropriate - Formal Thought Process Formal Thought Process: No Impairment - Suicidal Ideation Suicidal Ideation: No - Homicidal Ideation Homicidal Ideation: No Goal/Treatment Plan - Goal/Treatment Plan Need for Continued Stay: Discharge may exacerbated symptoms, Severe functional impairment Progress Toward Problem(s) and Goals/Treatment Plan: Taper with methadone As needed medications All risks, benefits and alternatives of the meds discussed, and the pt agreed and understood. Attend groups and activities Supportive therapy and psychoeducation [place] for abstinence CBT for relapse prevention Encourage MAT Refer to rehab or IOP, and self-help groups Smoking cessation with [place] Nicotine patch if needed Nephro consult - she will need HD on Friday and Friday
[2017-11-10 08:05] LABS: HEMOGLOBIN 13.3 g/dL (11.0-16.0); MEAN CELL VOLUME 99.3 fL (81.0-99.0); MEAN CORPUSCULAR HEMOGLOBIN 32.6 pg (27.0-31.0); MEAN CORPUSCULAR HGB CONC 32.9 g/dL (33.0-37.0); MEAN PLATELET VOLUME 7.9 fL (7.2-11.7); RBC 4.07 Mil/uL (3.80-5.20); RED CELL DISTRIBUTION WIDTH 15.3 % (11.5-14.5); WHITE BLOOD COUNT 3.7 K/uL (4.8-10.8)
[2017-11-10 08:40] LABS: ALB/GLOB RATIO 0.9 (1.0-2.1); ALBUMIN 3.7 g/dL (3.5-5.0); CALCIUM 9.4 mg/dl (8.6-10.4)
--- NOTE | 2017-11-10 12:44 | PCM.PYCHPN ---
Psychiatric Progress Note - Psychiatric Progress Note Patient seen today, length of contact: 17 min Patient Chief Complaint: "I am better" Problems Identified/Issues Discussed: The pt is seen, chart reviewed, case discussed with staff. Support and psychoeducation given, CBT and [place] used briefly No new symptoms reported, improving slowly and needs more time No SEs from medications, risks discussed. After care discussed Medication Change: Yes (detox changes daily) Medical Record Reviewed: Yes Mental Status Examination - Cognitive Function Orientation: Person, Place, Situation, Time Memory: Impaired Attention: WNL Concentration: Poor Association: WNL Fund of Knowledge: Poor - Mood Mood: Depressed, Anxious - Affect Affect: Constricted - Speech Speech: Appropriate - Formal Thought Process Formal Thought Process: No Impairment - Suicidal Ideation Suicidal Ideation: No - Homicidal Ideation Homicidal Ideation: No Goal/Treatment Plan - Goal/Treatment Plan Need for Continued Stay: Discharge may exacerbated symptoms, Severe functional impairment Progress Toward Problem(s) and Goals/Treatment Plan: Taper with methadone As needed medications All risks, benefits and alternatives of the meds discussed, and the pt agreed and understood. Attend groups and activities Supportive therapy and psychoeducation [place] for abstinence CBT for relapse prevention Encourage MAT Refer to rehab or IOP, and self-help groups Smoking cessation with [place] Nicotine patch if needed Nephro consult - she will need HD on Friday and Friday Estimated Date of D/C: 11/11/17
[2017-11-10] MEDS: Multiple Vitamins Tab PO SCH (13:58)
[2017-11-10] MEDS: LamiVUDine 10 mg/ml Syringe PO SCH (13:59)
--- NOTE | 2017-11-10 18:21 | CP.PCM.PN ---
Subjective - Date & Time of Evaluation Date of Evaluation: 11/10/17 Time of Evaluation: 18:20 - Subjective Subjective: pt is seen and examined, follow up consult is dictated #[id number] s/p hd today, esrd, htn, dm, hiv +, dm, hyperkalemia Objective - Vital Signs/Intake and Output Vital Signs (last 24 hours): Temp Pulse Resp BP Pulse Ox 98 F 72 18 128/74 99 11/10/17 16:00 11/10/17 16:00 11/10/17 16:00 11/10/17 16:00 11/10/17 16:00 - Medications Medications: Current Medications Acetaminophen (Tylenol 325mg Tab) 650 mg PO Q6H PRN PRN Reason: Pain, moderate (4-7) Al Hydrox/Mg Hydrox/Simethicone (Maalox 30 Ml) 30 ml PO TID PRN PRN Reason: Indigestion / Heartburn Albuterol (Ventolin Hfa 90 Mcg/Actuation (8 G)) 1 puff INH RQ4 PRN PRN Reason: SOB Clonidine HCl (Catapres) 0.1 mg PO Q4H PRN PRN Reason: COWS Score More or Equal to 5 Cyanocobalamin (Vitamin B12 1000 Mcg Tab) 1,000 mcg PO DAILY NEGRA Last Admin: 11/10/17 13:59 Dose: 1,000 mcg Darunavir (Prezista) 800 mg PO DAILY NEGRA PRN Reason: Protocol Last Admin: 11/10/17 13:59 Dose: 800 mg Dolutegravir Sodium (Tivicay) 50 mg PO DAILY NEGRA PRN Reason: Protocol Last Admin: 11/10/17 13:59 Dose: 50 mg Ergocalciferol (Drisdol 50,000 Intl Units Cap) 1 cap PO Q7D NEGRA Last Admin: 11/08/17 12:13 Dose: 1 cap Glipizide (Glucotrol) 5 mg PO ACB NEGRA Last Admin: 11/10/17 08:01 Dose: 5 mg Hydroxyzine HCl (Atarax) 25 mg PO Q4 PRN PRN Reason: Anxiety Last Admin: 11/09/17 21:01 Dose: 25 mg Lamivudine (Epivir) 100 mg PO DAILY NEGRA PRN Reason: Protocol Last Admin: 11/10/17 13:59 Dose: 100 mg Loperamide HCl (Imodium) 2 mg PO Q8 PRN PRN Reason: Diarrhea Methadone HCl (Methadone) 5 mg PO Q24H NEGRA PRN Reason: Taper Stop: 11/12/17 09:59 Last Admin: 11/10/17 13:58 Dose: 5 mg Multivitamins (Hexavitamin) 1 tab PO DAILY NEGRA Last Admin: 11/10/17 13:58 Dose: 1 tab Ondansetron HCl (Zofran Tab) 4 mg PO Q8 PRN PRN Reason: Nausea/Vomiting Quetiapine Fumarate (Seroquel) 50 mg PO HS [facility] Last Admin: 11/09/17 21:01 Dose: 50 mg Vitamin A (Vitamin A & D Oint Ud Foilpak) 1 ea TOP BID PRN PRN Reason: Dry skin Last Admin: 11/08/17 12:24 Dose: 1 ea - Labs Labs: 11/10/17 07:57 11/10/17 07:57
[2017-11-11 06:12] VITALS: BP 132/68; PULSE 65; RESP 18; TEMP 98.6; O2SAT 100
--- NOTE | 2017-11-11 08:42 | PCM.PYCHDC ---
Mental Status Examination - Mental Status Examination Orientation: Person, Place, Situation, Time Memory: Intact Mood: Anxious Affect: Constricted Speech: Appropriate Attention: WNL Concentration: WNL Association: WNL Fund of Knowledge: WNL Formal Thought Process: No Impairment Suicidal Ideation: No Current Homicidal Ideation?: No Discharge Summary - Discharge Note Reason for Hospitalization: Opioid detox Laboratory Data: Abnormal Lab Results 11/09/17 11/10/17 11/10/17 08:18 07:41 11:26 POC Glucose (mg/dL) 155 H 156 H 152 H Consultations:: List each consultation separately and include: 1. Reason for request. 2. Findings. 3. Follow-up Consultations: Nephro - help appreciated. Summary of Hospital Course include:: 1. Description of specific treatment plan utilized for patients during their course of treatmen. 2. Summarize the time- course for resolution of acute symptoms and/or regressed behaviors. 3. Describe issues identified and worked on during hospitalization. 4. Describe medication utilized. 5. Describe medical problems identified and treated. 6. Reassessment of suicide risk Summary of Hospital Course: On admission: The pt is seen, chart reviewed and case discussed She is a 52 y/o AAF, single with an adult daughter, lives alone, on welfare She is known from previous admission. She says she relapsed 2-3 weeks ago She is here again for 10 bags heroin intranasally She started 15 years ago Had 5-6 detoxes and 2 rehabs Used methadone maintenance in [place] "long ago." She also smoked crack cocaine x20 years. Negative now Denies other drugs, but sometimes MJ and 5 cig/d Psych hx: Denies, but now feels depressed, not suicidal though Family psych hx: Denies Medical hx: DM, HTN, HIV, Asthma. She is on HD now Hospital course: The pt was admitted and started on treatment with psychotherapy, support, psychoeducation and medications. DC and CBT used. The pt attended groups and activities, as well as milieu therapy. All the risks and benefits of medications are discussed and the patient understood and agreed. The pt improved with the treatments provided. She also got one HD session yesterday. After care discussed with the patient.She will go back to [facility] but she was uninterested in referrals elsewhere. Risks discussed. She will consider suboxone - Final Diagnosis (DSM 5) Condition upon Discharge: IMPROVED DSM 5: Opioid withdrawal Opioid use d/o- severe HIV ESRD HTN DM Asthma Disposition: HOME/ ROUTINE Follow-up Treatment Plan: Continue below medications after discharge. Follow after care plan as discussed. Use relapse prevention skills Return to ER or call 911 if suicidal, homicidal or symptoms relapse. Stay away from stress, alcohol and drugs. See primary doctor regularly and get labs. - Smoking Cessation Smoking Cessation Medication prescribed: No - Antipsychotic Medications Pt discharged on 2 or more routine antipsychotic medications: No
--- NOTE | 2017-11-11 09:17 | PN ---
DATE: 11/10/2017 FOLLOWUP RENAL CONSULTATION LOCATION: The patient is located in [facility], bed B detox unit. REQUESTED BY: Joaquín Lee MD REASON FOR RENAL FOLLOWUP: End-stage renal disease, continuation of hemodialysis. SUBJECTIVE: Mrs. Shine is a 52-year-old middle-aged female with a past medical history significant for longstanding hypertension, diabetes, HIV positive, end-stage renal disease, gastritis, status post colostomy, and heroin abuse who was admitted for detox. The patient is due for hemodialysis. Denies any complaints. No chest pain. No palpitation. No fever. No cough. No abdominal pain. No nausea, vomiting, or diarrhea. PHYSICAL EXAMINATION: VITAL SIGNS: As follows: Blood pressure 128/74, pulse 72, respirations 18, temperature 98, and saturation 99%. Height 5 feet 6 inches. Weight is 157 pounds. GENERAL: Mrs. Shine is a 52-year-old middle-aged female, moderately built, moderately nourished, not in acute distress. HEENT: Pupils are normal and reactive to light and accommodation. Conjunctivae are pink. Sclerae are anicteric. Tongue is moist. Trachea is midline. LUNGS: Symmetric on both sides. Bilateral breath sounds present. Clear to auscultation. CVS: [place] at the fifth intercostal space, midclavicular line. S1, S2 audible. No murmur or gallop. ABDOMEN: Normal in appearance. Soft, tympanic. No guarding. No rigidity. No hepatosplenomegaly. Colostomy present. 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 Nonfocal on examination. Cranial nerves II-XII grossly intact. Sensory and motor system is within normal limits. EXTREMITIES: No cyanosis, no clubbing, no edema. LABORATORY DATA: Include as follows as of 11/10/2017: WBC 3.7, hemoglobin 13.3, hematocrit is 40.5, platelets 218. Sodium 137, potassium 5.8, chloride 105, CO2 of 22, BUN 55, creatinine 3.3, glucose 127, calcium 9.4, phosphorus 3.8, magnesium . AST 50, ALT 42, alkaline phosphatase 106, total protein 7, albumin 3.7. ASSESSMENT AND PLAN: In summary, Mrs. Shine is a 52-year-old middle-aged female with a history of hypertension, diabetes, status post colostomy, human immunodeficiency virus positive, end-stage renal disease and on hemodialysis three times a week, Friday, Friday and Friday, and heroin abuse. Admitted to detox floor for heroin detox. 1. End-stage renal disease. Continue hemodialysis three times a day on Friday, Friday and Friday for possible discharge tomorrow. 2. Hyperkalemia secondary to renal failure. Advised low-potassium diet. 3. Hypertension. 4. Diabetes. Continue all her current medications. Once the patient is discharged, the patient can go back to her own hemodialysis unit outpatient. I advised a low-sodium, low-potassium diet. Thank you for allowing me to participate in your patient's care. Alvaro Duarte MD
== END 2017-11-11 07:30 | disposition home or self-care (01) | DRG 714 ==
LOC: C.ER 16:09 → C.7D 18:02
PROVIDERS: ADMIT Psychiatry & Neurology Psychiatry; ATTEND Psychiatry & Neurology Psychiatry
PROC: HZ2ZZZZ Detoxification Services for Substance Abuse Treatment (ICD-10-PCS; principal; 2017-11-07)
PROC: HZ59ZZZ Individual Psychotherapy for Substance Abuse Treatment, Supportive (ICD-10-PCS; 2017-11-07)
PROC: HZ46ZZZ Group Counseling for Substance Abuse Treatment, Psychoeducation (ICD-10-PCS; 2017-11-07)
PROC: HZ90ZZZ Pharmacotherapy for Substance Abuse Treatment, Nicotine Replacement (ICD-10-PCS; 2017-11-07)
PROC: 5A1D70Z Performance of Urinary Filtration, Intermittent, Less than 6 Hours Per Day (ICD-10-PCS; 2017-11-10)
DX: F11.23 Opioid dependence with withdrawal (principal); N18.6 End stage renal disease; Z21 Asymptomatic human immunodeficiency virus [HIV] infection status; E11.22 Type 2 diabetes mellitus with diabetic chronic kidney disease; F17.210 Nicotine dependence, cigarettes, uncomplicated; I12.0 Hypertensive chronic kidney disease with stage 5 chronic kidney disease or end stage renal disease; E87.5 Hyperkalemia; J45.909 Unspecified asthma, uncomplicated; Z91.5 Personal history of self-harm; Z90.710 Acquired absence of both cervix and uterus; Z99.2 Dependence on renal dialysis; Z93.3 Colostomy status